=== PATIENT | female | born 1960 | race Caucasian/White ===

== ENCOUNTER 2017-06-06 10:46 | Emergency (ER) | payer SELFPAY ==
[~2017-06-06] VITALS: Ht 170.2 cm; Wt 51.0 kg
[~2017-06-06 10:46] MED LIST: CYCL-36 PO; IBUP600T26 PO; ST J300C PO; TAB-TAB PO
[2017-06-06 10:50] VITALS: BP 117/63; PULSE 73; RESP 16; TEMP 98.5; O2SAT 97
--- NOTE | 2017-06-06 11:16 | PD ---
HPI Chief Complaint: Cold / Flu Symptoms Time Seen by Provider: 11:06 Travel History International Travel<30 days: No Contact w/Intl Traveler<30days: No Traveled to known affect area: No History of Present Illness HPI 56-year-old female with history of tobacco use presents emergency Department with sore throat, cough, or drainage and fatigue for 2 days. States that she has had a productive cough but does not know what color this is been. Patient states that she has felt more fatigued than normal. Patient denies chest pain, shortness of breath, nausea, vomiting or diarrhea. Patient denies history of COPD or asthma. Patient is not seen her primary care physician in 3 years. Denies chronic medical issues medication use. Her friend is here as well and she is concerned that patient will worsen over the weekend which is why she is here today. PFSH Past Medical History Arthritis: No Asthma: No Blood Disorders: No Anxiety: Yes Depression: Yes Heart Rhythm Problems: Yes (bradycardia) Cancer: No Cardiac Catheterization: No Cardiovascular Problems: No High Cholesterol: No Chemotherapy: No Chest Pain: No Congestive Heart Failure: No COPD: No Cerebrovascular Accident: No Diabetes: No Diminished Hearing: No Endocrine: No Gastrointestinal Disorders: Yes (GASTROPARESIS) GERD: No Genitourinary: No Headaches: No Hepatitis: No Hiatal Hernia: No Hypertension: No Immune Disorder: No Kidney Stones: No Musculoskeletal: No Neurologic: No Psychiatric: No Reproductive: No Respiratory: No Immunizations Current: No Migraines: Yes Myocardial Infarction: No Radiation Therapy: No Renal Failure: No Seizures: No Sleep Apnea: No Ulcer: No Tetanus Vaccination: < 5 Years Influenza Vaccination: No Menopausal: Yes : 3 Para: 2 Ectopic : Yes (X 1) Dilation and Curettage (D&C): Yes Past Surgical History Abdominal Surgery: Yes (APPY,CHOLECYSTECTOMY) Appendectomy: Yes Cardiac Surgery: No Cholecystectomy: Yes Coronary Artery Bypass Graft: No Ear Surgery: No Endocrine Surgery: No Eye Surgery: No Genitourinary Surgery: No Gynecologic Surgery: Yes (HYSTERECTOMY) Hysterectomy: Yes Oral Surgery: No Thoracic Surgery: No Other Surgery: Yes (R ANKLE, R FOOT) Social History Alcohol Use: No Tobacco Use: No (2 PPD) Substance Use: No Allergies-Medications (Allergen,Severity, Reaction): Coded Allergies: penicillin G (Unverified Allergy, Intermediate, 06/06/17) codeine (Unverified Adverse Reaction, Severe, nausea and migraines, ) metronidazole (Unverified Adverse Reaction, Severe, VOMITING, 06/06/17) venlafaxine (Unverified Adverse Reaction, Severe, Hallucinations, 06/06/17) Reported Meds & Prescriptions Reported Meds & Active Scripts Active Azithromycin 250 Mg Tab 250 Mg PO DIRECTED Take 2 tabs (500 mg) on day 1 then 1 tab daily x 4 days. Review of Systems Except as stated in HPI: all other systems reviewed are Neg Physical Exam Narrative GENERAL: Well-developed well-nourished in no apparent distress SKIN: Focused skin assessment warm/dry. HEAD: Atraumatic. Normocephalic. EYES: Pupils equal and round. No scleral icterus. No injection or drainage. ENT: No nasal bleeding or discharge. Mucous membranes pink and moist. Posterior pharynx mildly erythematous with postnasal drip NECK: Trachea midline. No JVD. No lymphadenopathy CARDIOVASCULAR: Regular rate and rhythm. No murmur appreciated. RESPIRATORY: No accessory muscle use. Right lower lobes scant expiratory wheezing GASTROINTESTINAL: Abdomen soft, non-tender, nondistended. No CVA tenderness MUSCULOSKELETAL: No obvious deformities. No clubbing. No cyanosis. No edema. NEUROLOGICAL: Awake and alert. No obvious cranial nerve deficits. Motor grossly within normal limits. Normal speech. PSYCHIATRIC: Appropriate mood and affect; insight and judgment normal. Data Data Last Documented VS Vital Signs Date Time Temp Pulse Resp B/P (MAP) Pulse Ox O2 Delivery O2 Flow Rate FiO2 06/06/17 10:50 98.5 73 16 117/63 (81) 97 Orders Orders Influenzae A/B Antigen (06/06/17 11:12) Chest, Single Ap (06/06/17 ) Ed Discharge Order (06/06/17 12:13) MDM Medical Decision Making Medical Screen Exam Complete: Yes Emergency Medical Condition: Yes Differential Diagnosis Influenza, upper respiratory infection, pneumonia Narrative Course 56-year-old female with history of tobacco use presents emergency Department with sore throat, cough, or drainage and fatigue for 2 days. States that she has had a productive cough but does not know what color this is been. Patient states that she has felt more fatigued than normal. Patient denies chest pain, shortness of breath, nausea, vomiting or diarrhea. Patient denies history of COPD or asthma. Patient is not seen her primary care physician in 3 years. Denies chronic medical issues medication use. Her friend is here as well and she is concerned that patient will worsen over the weekend which is why she is here today. Influenza negative Chest x-ray with emphysematous changes. No acute process. Patient be discharged with watch and wait antibiotics. Educated the patient that this is likely a viral infection does not require antibiotics currently. However, because patient does have emphysematous changes on her chest x-ray does not follow-up primary care physician, and concern about follow-up. Patient understands that she should not take antibiotics unless she worsens or persists. She will use [id number] medications for symptom relief. I offered inhalers however, patient states that she does not have shortness of breath or chest pain at this time. I strongly advised patient to follow up with primary care physician as it appears that she may have COPD. Patient states understanding and will comply. Diagnosis Primary Impression: Viral syndrome Referrals: [facility] Primary Care Physician Additional Instructions: Follow-up with primary care physician this week. If your symptoms persist or worsen return to the emergency. Remained active as tolerated to prevent worsening of your symptoms. Ensure you have adequate fluid intake You may alternate tylenol or motrin per package instructions for your symptoms. As discussed, do not take antibiotics unless you worsen. You have a viral infection which does not currently require antibiotics. I strongly advised to follow-up with your primary care as discussed. Scripts Azithromycin (Azithromycin) 250 Mg Tab 250 MG PO DIRECTED for Infection, #6 TAB 0 Refills Take 2 tabs (500 mg) on day 1 then 1 tab daily x 4 days. Prov: Fanta Siegel 06/06/17 Disposition: 01 DISCHARGE HOME Condition: Stable Fanta Siegel Jun 06, 2017 11:16
--- NOTE | 2017-06-06 11:52 | RADRPT ---
EXAM DATE/TIME: 06/06/2017 11:23 [facility] COMPARISON: No previous studies available for comparison. INDICATIONS : Cough, congestion MEDICAL HISTORY : None. SURGICAL HISTORY : None. ENCOUNTER: Initial ACUITY: 3 days PAIN SCORE: 0/10 LOCATION: Bilateral chest FINDINGS: A single view of the chest demonstrates the lungs to be symmetrically hyperaerated without evidence o f mass, infiltrate or effusion. The cardiomediastinal contours are unremarkable. Osseous structures are intact. CONCLUSION: Emphysematous change. No evidence of acute cardiopulmonary disease. Deya Peters MD on June 06, 2017 at 11:48 Board Certified Radiologist. This report was verified electronically.
[2017-06-06] MEDS ORDERED: AZIT250T3 PO (12:12)
== END 2017-06-06 12:30 | disposition home or self-care (01) ==
LOC: PHEFT 10:46
DX: B34.9 Viral infection, unspecified (principal); F32.9 Major depressive disorder, single episode, unspecified; R00.1 Bradycardia, unspecified; K31.84 Gastroparesis; F17.210 Nicotine dependence, cigarettes, uncomplicated
CPT/HCPCS: 71045; 87804; 99284

== ENCOUNTER 2017-07-11 16:01 | Emergency (ER) | payer SELFPAY ==
[~2017-07-11] VITALS: Ht 170.2 cm; Wt 53.0 kg
[~2017-07-11 16:01] MED LIST changes: +AZIT250T3 PO; -CYCL-36 PO; -IBUP600T26 PO; -ST J300C PO; -TAB-TAB PO
[2017-07-11 16:31] VITALS: BP 126/77; PULSE 73; RESP 16; TEMP 99.1; O2SAT 100
--- NOTE | 2017-07-11 17:07 | RADRPT ---
EXAM DATE/TIME: 07/11/2017 16:48 [facility] COMPARISON: No previous studies available for comparison. INDICATIONS : Pain post fall. MEDICAL HISTORY : None. SURGICAL HISTORY : None. ENCOUNTER: Initial ACUITY: 1 day PAIN SCORE: 10/10 LOCATION: Right Ankle. FINDINGS: Three view exam was performed of the right ankle. The bony structures are in normal alignment. No e vidence of fracture, dislocation, or soft tissue swelling. The ankle mortise is intact. No radiopaq ue foreign bodies are seen. Bony mineralization is normal. CONCLUSION: Plantar calcaneal spur. No fractures. Clay Álvarez MD on July 11, 2017 at 17:05 Board Certified Radiologist. This report was verified electronically.
--- NOTE | 2017-07-11 17:07 | RADRPT ---
EXAM DATE/TIME: 07/11/2017 16:48 [facility] COMPARISON: ANKLE RIGHT COMPLETE ([id number]), July 11, 2017, 16:48. INDICATIONS : Pain post fall. MEDICAL HISTORY : None. SURGICAL HISTORY : None. ENCOUNTER: Initial ACUITY: 1 day PAIN SCORE: 10/10 LOCATION: Right Foot. FINDINGS: Normal bone density. 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 Plantar heel spur. No fracture o r dislocation. CONCLUSION: No acute disease. Clay Álvarez MD on July 11, 2017 at 17:05 Board Certified Radiologist. This report was verified electronically.
[2017-07-11] MEDS ORDERED: ACETAMINOPHEN/HYDROcodone 325 MG/5 MG TAB PO ONE (17:15)
[2017-07-11] MEDS ORDERED: DICL75TA PO (17:16)
--- NOTE | 2017-07-11 17:23 | PD ---
HPI Chief Complaint: Fall Time Seen by Provider: 16:51 Travel History International Travel<30 days: No Contact w/Intl Traveler<30days: No Traveled to known affect area: No History of Present Illness HPI 56-year-old female that presents to the ED for evaluation of trip and fall today. Per patient she tripped and fell on stairs. Per patient and her ankle inwards. She's been having pain on the lateral aspect of the ankle since. Denies any recent injuries but states that about 20 years ago she had a ligamental injury to that ankle for which he needed surgery. She denies any medical issues. No urinary bowel movement issues. No head injury or loss of consciousness. Hasn't taken anything for this. Injury occurred about 2 hours ago. Pain worsened with weightbearing. Pain per patient is 7 out of 10 and worse with weightbearing. No numbness, tingling, weakness. No open sores. Minimal swelling noted. PFSH Past Medical History Arthritis: No Asthma: No Blood Disorders: No Anxiety: Yes Depression: Yes Heart Rhythm Problems: Yes (bradycardia) Cancer: No Cardiac Catheterization: No Cardiovascular Problems: No High Cholesterol: No Chemotherapy: No Chest Pain: No Congestive Heart Failure: No COPD: No Cerebrovascular Accident: No Diabetes: No Diminished Hearing: No Endocrine: No Gastrointestinal Disorders: Yes (GASTROPARESIS) GERD: No Genitourinary: No Headaches: No Hepatitis: No Hiatal Hernia: No Heparin Induced Thrombocytopen: No Hypertension: No Immune Disorder: No Implanted Vascular Access Dvce: No Kidney Stones: No Musculoskeletal: No Neurologic: No Psychiatric: No Reproductive: No Respiratory: No Immunizations Current: No Migraines: Yes Myocardial Infarction: No Radiation Therapy: No Renal Failure: No Seizures: No Sleep Apnea: No Ulcer: No ?: Not Menopausal: Yes : 3 Para: 2 Ectopic : Yes (X 1) Dilation and Curettage (D&C): Yes Past Surgical History Abdominal Surgery: Yes (APPY,CHOLECYSTECTOMY) Appendectomy: Yes Cardiac Surgery: No Cholecystectomy: Yes Coronary Artery Bypass Graft: No Ear Surgery: No Endocrine Surgery: No Eye Surgery: No Genitourinary Surgery: No Gynecologic Surgery: Yes (HYSTERECTOMY) Hysterectomy: Yes Neurologic Surgery: No Oral Surgery: No Thoracic Surgery: No Other Surgery: Yes (R ANKLE, R FOOT) Social History Alcohol Use: No Tobacco Use: No (1/2 PPD) Substance Use: No Allergies-Medications (Allergen,Severity, Reaction): Coded Allergies: penicillin G (Unverified Allergy, Intermediate, 07/11/17) codeine (Unverified Adverse Reaction, Severe, nausea and migraines, 07/11/17 ) metronidazole (Unverified Adverse Reaction, Severe, VOMITING, 07/11/17) venlafaxine (Unverified Adverse Reaction, Severe, Hallucinations, 07/11/17) Reported Meds & Prescriptions Reported Meds & Active Scripts Active Diclofenac Sodium DR (Diclofenac Sodium) 75 Mg Tabdr 75 Mg PO BID PRN Review of Systems Except as stated in HPI: all other systems reviewed are Neg Physical Exam Narrative GENERAL: SKIN: Warm and dry. HEAD: Atraumatic. Normocephalic. EYES: Pupils equal and round. No scleral icterus. No injection or drainage. ENT: No nasal bleeding or discharge. Mucous membranes pink and moist. NECK: Trachea midline. No JVD. CARDIOVASCULAR: Regular rate and rhythm. RESPIRATORY: No accessory muscle use. Clear to auscultation. Breath sounds equal bilaterally. GASTROINTESTINAL: Abdomen soft, non-tender, nondistended. Hepatic and splenic margins not palpable. MUSCULOSKELETAL: Extremities without clubbing, cyanosis, or edema. No obvious deformities. Full range of motion of the upper and lower extremities bilaterally. 2+ pulses bilaterally. Patient is a possible pain on the lateral aspect of the ankle of the right. Sensation intact bilaterally. Most of it appears to be on the Malleolus as well as the fifth metatarsal. Otherwise no sign of acute disease. No obvious bony deformity noted. Sensation intact bilaterally. Full range of motion of the toes. NEUROLOGICAL: Awake and alert. No obvious cranial nerve deficits. Motor grossly within normal limits. Five out of 5 muscle strength in the arms and legs. Normal speech. PSYCHIATRIC: Appropriate mood and affect; insight and judgment normal. Data Data Last Documented VS Vital Signs Date Time Temp Pulse Resp B/P (MAP) Pulse Ox O2 Delivery O2 Flow Rate FiO2 07/11/17 16:31 99.1 73 16 126/77 (93) 100 Orders Orders Ankle, Complete ([id number]) (07/11/17 ) Foot, Complete ([id number]) (07/11/17 ) Acetamin-Hydrocod 325-5 Mg ([place] 5-325 (07/11/17 17:15) Ed Discharge Order (07/11/17 17:19) Splint Or Brace Apply/Monitor (07/11/17 17:19) [facility] Medical Decision Making Medical Screen Exam Complete: Yes Emergency Medical Condition: Yes Medical Record Reviewed: Yes Interpretation(s) X-ray of the ankle and foot was negative for acute bony injury. Differential Diagnosis Fracture versus sprain versus strain versus bruise versus contusion Narrative Course 56-year-old female that presents to the ED for evaluation of injury to the right ankle. Patient was properly examined and was found to have signs and symptoms concerning for bony injuries. X-rays were done. Extremities were negative for acute bony injury. Patient was reassured. Patient was given brace and crutches. Given prescription for diclofenac sodium. Told to follow with orthopedic doctor. See ED worsening symptoms. Diagnosis Primary Impression: Ankle sprain Qualified Codes: S93.401A - Sprain of unspecified ligament of right ankle, initial encounter Referrals: Primary Care Physician as needed Patient Instructions: General Instructions, Narcotic given in the ED Departure Forms: Tests/Procedures Additional Instructions: Take medications as prescribed. Follow-up with PCP. See ED for any worsening symptoms. Apply ice or heat as needed for pain Med/Other Pt SpecificInfo: Prescription(s) given Scripts Diclofenac Sodium (Diclofenac Sodium DR) 75 Mg Tabdr 75 MG PO BID Y for PAIN SCALE 1 TO 10, #20 TAB 0 Refills Prov: Tamika Adame MD 07/11/17 Disposition: 01 DISCHARGE HOME Condition: Stable Chuck Crowe Jul 11, 2017 17:23
== END 2017-07-11 18:01 | disposition home or self-care (01) ==
LOC: PHEFT 16:01
DX: S93.401A Sprain of unspecified ligament of right ankle, initial encounter (principal); W10.9XXA Fall (on) (from) unspecified stairs and steps, initial encounter; F41.9 Anxiety disorder, unspecified; F32.9 Major depressive disorder, single episode, unspecified; K31.84 Gastroparesis
CPT/HCPCS: 73610; 73630; 99283; E0113; L1906